=== PATIENT | female | born 1950 | race Caucasian/White ===

== ENCOUNTER 2019-11-12 11:28 | Outpatient (CLI) | payer MEDICARE, SELFPAY ==
--- NOTE | 2019-11-12 11:36 | MM_ITS ---
WS: [id number] BILATERAL SCREENING DIGITAL MAMMOGRAM WITH CAD HISTORY: SCREENING COMPARISON: 03/20/2018 and 11/29/2016 Bilateral CC and MLO views submitted. Computer aided detection analyzed. Breast composition: There are scattered areas of fibroglandular density. No suspicious masses, microc alcifications or architectural distortion. Benign lymph node upper outer quadrant of the RIGHT breast . Benign calcifications central LEFT breast near 9:00. MM/[id number] IMPRESSION: BI-RADS: 2-Benign FOLLOW UP: 1 Year Follow-up
== END 2019-11-12 11:29 | disposition home or self-care (01) ==
PROVIDERS: PCP Family Medicine; Visit Provider Family Medicine
DX: Z12.31 Encounter for screening mammogram for malignant neoplasm of breast (principal)
CPT/HCPCS: 77067

== ENCOUNTER 2020-05-17 14:37 | Outpatient (CLI) | payer MEDICARE, SELFPAY ==
--- NOTE | 2020-05-17 14:44 | XRR_ITS ---
PROCEDURE INFORMATION: Exam: XR Left Knee Exam date and time: 05/17/2020 3:26 PM Age: 69 years old Clinical indication: Pain; Knee; Left; Additional info: Routine, knee pain TECHNIQUE: Imaging protocol: XR Left knee. Views: 1 or 2 views. COMPARISON: MR knee LT wo con* [id number] 05/17/2020 2:59 PM FINDINGS: Bones/joints: Moderate degenerative narrowing of the medial joint compartment. Mild narrowing of the anterior compartment. The lateral compartment is preserved. There are small osteophytes seen medially, laterally, and anteriorly. No fracture or other acute osseous abnormality. No joint effusion demonstrated. Soft tissues: The soft tissues appear unremarkable. XR/XR knee LT 1-2V [id number] IMPRESSION: 1. Tricompartmental degenerative arthritis noted, most severe in the medial and anterior compartments. 2. No acute abnormality demonstrated.
--- NOTE | 2020-05-17 14:44 | MR_ITS ---
WS: [id number] MRI LEFT KNEE NONCONTRAST TECHNIQUE: Axial PD, coronal PD fat sat, coronal PD, sagittal PD, and sagittal PD fat-sat images obta ined. CLINICAL INFORMATION: ROUTINE, KNEE PAIN COMPARISON: None. FINDINGS: Moderate tricompartmental arthritis with narrowing of the medial joint compartment and patellofemoral articulation. Hypertrophic patella. Small suprapatellar effusion. Diffuse soft tissue edema involvi ng the periarticular soft tissues. Small lobulated popliteal cyst. Advanced chondromalacia patella. No subchondral edema. Diffuse edema involving the medial femoral con dyle and medial tibial plateau likely due to recent contusion. Small osteochondral defect measuring 3 mm. No significant edema involving the lateral femoral condyle and tibial plateau. Diffuse chronic thinning of the medial and lateral meniscus. Lateral meniscus is intact. Complex tear involving the posterior horn medial meniscus extending to the articular surface and extending to the meniscal root with joint space narrowing. Anterior and posterior cruciate ligaments are intact. Distal quadriceps and patella tendons are intac t. Medial and lateral collateral ligaments appear intact. Incidental venous varices involving the jan elizabeth soft tissues. MR/MR knee LT wo con* [id number] IMPRESSION: 1. Anterior and posterior cruciate ligaments are intact. 2. Complex tear involving the posterior horn medial meniscus extending to the articular surface and meniscal root with joint space narrowing. 3. Diffuse edema involving the medial femoral condyle and tibial plateau with small osteochondral defect described above likely due to recent contusion. 4. Small suprapatellar effusion. 5. Advanced chondromalacia patella. 6. Small lobulated popliteal cyst. 7. Medial and lateral collateral ligaments appear intact.
== END 2020-05-17 14:38 | disposition home or self-care (01) ==
PROVIDERS: PCP Family Medicine; Visit Provider Nurse Practitioner
DX: M17.12 Unilateral primary osteoarthritis, left knee (principal); M71.22 Synovial cyst of popliteal space [Baker], left knee; M22.42 Chondromalacia patellae, left knee; M25.462 Effusion, left knee; R60.0 Localized edema; S83.242A Other tear of medial meniscus, current injury, left knee, initial encounter; X58.XXXA Exposure to other specified factors, initial encounter
CPT/HCPCS: 73560; 73721

== ENCOUNTER 2020-07-13 06:00 | Outpatient (RCR) | payer MEDICARE, SELFPAY | END 2020-07-25 23:59 | disposition home or self-care (01) | LOC: SPT 06:00 | PROVIDERS: PCP Family Medicine; Referring Provider Orthopaedic Surgery; Visit Provider Orthopaedic Surgery | DX: M17.12 Unilateral primary osteoarthritis, left knee (principal) | CPT/HCPCS: 97161 ==

== ENCOUNTER 2020-07-26 06:00 | Outpatient (RCR) | payer MEDICARE, SELFPAY | END 2020-08-24 23:59 | disposition home or self-care (01) | LOC: SPT 06:00 | PROVIDERS: PCP Family Medicine; Referring Provider Orthopaedic Surgery; Visit Provider Orthopaedic Surgery | DX: M17.12 Unilateral primary osteoarthritis, left knee (principal) | CPT/HCPCS: 97110 ==

== ENCOUNTER → 2020-09-26 13:35 | Outpatient (BNVA) | payer MEDICARE, SELFPAY | PROVIDERS: PCP Family Medicine; Visit Provider Psychiatry & Neurology Psychiatry | DX: F31.9 Bipolar disorder, unspecified (principal); F41.9 Anxiety disorder, unspecified; Z79.899 Other long term (current) drug therapy; Z03.89 Encounter for observation for other suspected diseases and conditions ruled out | CPT/HCPCS: 80053; 80178; 83036; 84443; 85025 ==

== ENCOUNTER → 2020-11-07 10:18 | Outpatient (BNVA) | payer MEDICARE, SELFPAY | PROVIDERS: PCP Family Medicine; Visit Provider Psychiatry & Neurology Psychiatry | DX: Z79.899 Other long term (current) drug therapy (principal); Z03.89 Encounter for observation for other suspected diseases and conditions ruled out; F41.9 Anxiety disorder, unspecified; F31.9 Bipolar disorder, unspecified | CPT/HCPCS: 99214 ==

== ENCOUNTER → 2020-11-25 13:03 | Outpatient (BNVA) | payer MEDICARE, SELFPAY | PROVIDERS: PCP Family Medicine; Visit Provider Social Worker | DX: F41.1 Generalized anxiety disorder (principal); F31.9 Bipolar disorder, unspecified | CPT/HCPCS: 90834 ==

== ENCOUNTER → 2020-12-09 12:30 | Outpatient (BNVA) | payer MEDICARE, SELFPAY | PROVIDERS: PCP Family Medicine; Visit Provider Social Worker | DX: F41.9 Anxiety disorder, unspecified (principal); F31.9 Bipolar disorder, unspecified | CPT/HCPCS: 90834 ==

== ENCOUNTER 2020-12-15 16:07 | Outpatient (CLI) | payer MEDICARE, SELFPAY ==
--- NOTE | 2020-12-15 16:11 | XR_ITS ---
WS: [id number] Right ankle, 3 views, 12/15/2020 Clinical Data: CHRONIC PAIN IN RIGHT FOOT Comparison: None. Findings: No fractures or dislocations are seen. The ankle mortise is normal. The talus and calcaneus are unrem arkable. No soft tissue swelling over the medial or lateral malleolus is seen. There is a plantar spur and an Achilles spur. XR/XR ankle RT min 3V* [id number] Impression: Negative right ankle.
--- NOTE | 2020-12-15 16:11 | XR_ITS ---
WS: [email or web address] Right foot, 3 views, 12/15/2020 Clinical Data: CHRONIC PAIN RIGHT FOOT Comparison: None. Findings: No fractures or dislocations are seen. No bone destruction or erosion is noted. The joint spaces and soft tissues are normal. There is a plantar spur and an Achilles spur. XR/XR foot RT min 3V* [id number] Impression: Negative right foot.
== END 2020-12-15 16:08 | disposition home or self-care (01) ==
LOC: RAD 16:10
PROVIDERS: PCP Family Medicine; Visit Provider Nurse Practitioner
DX: M79.671 Pain in right foot (principal)
CPT/HCPCS: 73610; 73630

== ENCOUNTER → 2021-01-03 15:06 | Outpatient (BNVA) | payer MEDICARE, SELFPAY | PROVIDERS: PCP Family Medicine; Visit Provider Psychiatry & Neurology Psychiatry | DX: F31.9 Bipolar disorder, unspecified (principal); F41.9 Anxiety disorder, unspecified; Z79.899 Other long term (current) drug therapy; Z03.89 Encounter for observation for other suspected diseases and conditions ruled out | CPT/HCPCS: 99214 ==

== ENCOUNTER 2021-03-01 13:14 | Outpatient (CLI) | payer MEDICARE, SELFPAY ==
--- NOTE | 2021-03-01 13:20 | MM_ITS ---
WS: [id number] BILATERAL SCREENING DIGITAL MAMMOGRAM WITH CAD HISTORY: SCREENING COMPARISON: 11/12/2019, 03/20/2018 Bilateral CC and MLO views submitted. Computer aided detection analyzed. Breast composition: There are scattered areas of fibroglandular density. No suspicious masses, microc alcifications or architectural distortion. 6 mm nodule in the lateral RIGHT breast is stable from mul tiple years. This is probably a lymph node. Benign coarse calcification in the LEFT breast. MM/[id number] IMPRESSION: BI-RADS: 2-Benign FOLLOW UP: 1 Year Follow-up
== END 2021-03-01 13:15 | disposition home or self-care (01) ==
LOC: RADSHAW 13:19
PROVIDERS: PCP Family Medicine; Visit Provider Family Medicine
DX: Z12.31 Encounter for screening mammogram for malignant neoplasm of breast (principal)
CPT/HCPCS: 77067

== ENCOUNTER → 2021-06-14 14:37 | Outpatient (BNVA) | payer MEDICARE, SELFPAY | PROVIDERS: PCP Family Medicine; Visit Provider Podiatrist Foot & Ankle Surgery | DX: M72.2 Plantar fascial fibromatosis (principal); M21.621 Bunionette of right foot; M76.821 Posterior tibial tendinitis, right leg; M20.41 Other hammer toe(s) (acquired), right foot; M20.42 Other hammer toe(s) (acquired), left foot; M21.622 Bunionette of left foot | CPT/HCPCS: 99213 ==

== ENCOUNTER → 2021-08-09 14:50 | Outpatient (BNVA) | payer MEDICARE, SELFPAY | PROVIDERS: PCP Family Medicine; Visit Provider Podiatrist Foot & Ankle Surgery | DX: M72.2 Plantar fascial fibromatosis (principal); M79.671 Pain in right foot; M21.621 Bunionette of right foot; M21.622 Bunionette of left foot; M76.821 Posterior tibial tendinitis, right leg; M20.41 Other hammer toe(s) (acquired), right foot; M20.42 Other hammer toe(s) (acquired), left foot | CPT/HCPCS: 99213 ==

== ENCOUNTER 2021-08-16 15:57 | Outpatient (CLI) | payer MEDICARE, SELFPAY | END 2021-08-16 15:58 | disposition home or self-care (01) | LOC: SPT 15:57 | PROVIDERS: PCP Family Medicine; Visit Provider Podiatrist Foot & Ankle Surgery | DX: Z46.89 Encounter for fitting and adjustment of other specified devices (principal); M72.2 Plantar fascial fibromatosis; M79.673 Pain in unspecified foot | CPT/HCPCS: 97760; L3030 ==

== ENCOUNTER 2022-01-30 08:04 | Outpatient (CLI) | payer MEDICARE, SELFPAY ==
--- NOTE | 2022-01-30 08:09 | FL_ITS ---
WS: [id number] Upper GI series with air contrast, 01/30/2022 Clinical Data: ABDOMINAL PAIN/GASTRO-ESOPHAGEAL REFLUX DZ W/O ESOPHAGITIS Comparison: None. Fluoroscopy time: 1min [id number] # of spot films: 43 Findings: The preliminary film shows clips in the right upper quadrant from a cholecystectomy and clips overlyi ng the right sacrum from gastric surgery. There is a large amount of fecal material throughout the co len. The patient swallowed the barium and it flowed through the hypopharynx and upper esophagus witho ut hesitation or obstruction. There were tertiary contractions. The patient had a large hiatal hernia . There is modest gastroesophageal reflux. No erosion, polyp, obstruction, ulcer or mass could be see n. The stomach has been removed. There is an anastomosis between the esophageal hiatal hernia and the jejunum. The jejunum filled normally without obstruction, polyp, mass or extrinsic deformity. The il eum filled normally. FL/FL upper GI series [id number] Impression: 1. Large hiatal hernia with mild gastroesophageal reflux. 2. Resection of the stomach with anastomosis between the distal portion of the hiatal hernia and the jejunum.
== END 2022-01-30 08:05 | disposition home or self-care (01) ==
LOC: RAD 08:05
PROVIDERS: PCP Family Medicine; Visit Provider Family Medicine
DX: R10.9 Unspecified abdominal pain (principal); K21.9 Gastro-esophageal reflux disease without esophagitis; K44.9 Diaphragmatic hernia without obstruction or gangrene
CPT/HCPCS: 74240

== ENCOUNTER 2022-02-13 07:02 | Outpatient (CLI) | payer MEDICARE, SELFPAY ==
--- NOTE | 2022-02-13 07:17 | USCV_ITS ---
Nathen, Lilla Age: 71 Gender: F : 1950 Exam Date: 02/13/2022 07:25 Ordering Phys: Ana Hayes MD Technologist: MICHELLE [place] [facility] [place]: Flo[place] Risk Factors: Previous Vascular Surgery: Right Brachial BP: / Left Brachial BP: / Right Left Velocity (cm/s) Spectral Plaque Velocity (cm/s) Spectral Plaque Syst/Diast Broadening Syst/Diast Broadening 74.60/ 21.00 Prox CCA 61.70 / 14.30 72.20/ 21.80 Mid CCA 40.80 / 13.20 69.90/ 22.50 Distal CCA 59.50 / 19.80 41.10/ 12.70 Prox ICA 48.10 / 17.10 42.90/ 14.50 Mid ICA 54.50 / 17.10 55.90/ 21.80 Distal ICA 40.10 / 17.10 85.40 ECA 65.10 0.75 ICA/CCA 0.88 Vertebral 51.30/ 16.30 cm/s 36.30/ 8.00 cm/s Subclavian 83.80 124.9 0 FINDINGS Comparison: none available. No significant elevation of systolic or diastolic velocities. Waveforms are normal. Mild scattered calcified plaque and intimal thickening throughout the common carotid arteries and extending through the bifurcation. Antegrade vertebral arteries. CONCLUSIONS Bilateral ICA stenosis less than 50%. Mild carotid atherosclerosis. Dr. Kayla Soriano DO (Electronically Signed) Final Date: 13 February 2022 10:23 S
== END 2022-02-13 07:03 | disposition home or self-care (01) ==
LOC: RAD 07:02
PROVIDERS: PCP Family Medicine; Visit Provider Family Medicine
DX: R42 Dizziness and giddiness (principal); I65.23 Occlusion and stenosis of bilateral carotid arteries
CPT/HCPCS: 93880

== ENCOUNTER 2022-06-06 14:34 | Outpatient (CLI) | payer MEDICARE, SELFPAY ==
--- NOTE | 2022-06-06 14:45 | MM_ITS ---
WS: [id number] BILATERAL 3D TOMOSYNTHESIS DIGITAL SCREENING MAMMOGRAPHY WITH CAD CLINICAL INFORMATION: SCREENING HISTORY: Screening mammogram. No current complaints. COMPARISON: March 01, 2031 TECHNIQUE: Bilateral CC and MLO views. FINDINGS: Scattered fibroglandular densities bilaterally. No suspicious focal mass, asymmetry, calcifications, or architectural distortion. No evidence of malignancy. Vascular calcifications. Punctate and lucent calcifications. Dystrophic calcification LEFT breast. MM/[place] [id number] IMPRESSION: BI-RADS: 2-Benign FOLLOW UP: 1 Year Follow-up Recommend return to annual screening mammography.
== END 2022-06-06 14:35 | disposition home or self-care (01) ==
PROVIDERS: PCP Family Medicine; Visit Provider Family Medicine
DX: Z12.31 Encounter for screening mammogram for malignant neoplasm of breast (principal)
CPT/HCPCS: 77063; 77067

== ENCOUNTER → 2022-07-27 10:57 | Outpatient (BNVA) | payer MEDICARE, SELFPAY | PROVIDERS: PCP Family Medicine; Visit Provider Nurse Practitioner Family | DX: L81.4 Other melanin hyperpigmentation (principal); L57.0 Actinic keratosis; L82.1 Other seborrheic keratosis; L57.8 Other skin changes due to chronic exposure to nonionizing radiation; Z12.83 Encounter for screening for malignant neoplasm of skin | CPT/HCPCS: 17000; 17003; 99213 ==

== ENCOUNTER → 2022-10-19 10:47 | Outpatient (BNVA) | payer MEDICARE, SELFPAY | PROVIDERS: PCP Family Medicine; Visit Provider Otolaryngology | DX: Z71.1 Person with feared health complaint in whom no diagnosis is made (principal); K13.0 Diseases of lips | CPT/HCPCS: 99212; 99213 ==

== ENCOUNTER 2023-06-12 12:57 | Outpatient (CLI) | payer MEDICARE, SELFPAY ==
--- NOTE | 2023-06-12 13:11 | MM_ITS ---
WS: [id number] BILATERAL 3D TOMOSYNTHESIS DIGITAL SCREENING MAMMOGRAPHY WITH CAD CLINICAL INFORMATION: SCREENING HISTORY: Screening mammogram. No current complaints. COMPARISON: 06/06/2022 TECHNIQUE: Bilateral CC and MLO views. FINDINGS: Scattered fibroglandular densities bilaterally. No suspicious focal mass, asymmetry, calcifications, or architectural distortion. No evidence of malignancy. Incidental punctate and lucent centered calci fications. Dystrophic calcification LEFT breast. IMPRESSION: MM/[place] [id number] BI-RADS: 2-Benign FOLLOW UP: 1 Year Follow-up Recommend return to annual screening mammography.
== END 2023-06-12 12:58 | disposition home or self-care (01) ==
LOC: RAD 12:59
PROVIDERS: PCP Family Medicine; Visit Provider Family Medicine
DX: Z12.31 Encounter for screening mammogram for malignant neoplasm of breast (principal)
CPT/HCPCS: 77063; 77067

== ENCOUNTER → 2023-07-16 15:20 | Outpatient (BNVA) | payer MEDICARE, SELFPAY | PROVIDERS: PCP Family Medicine; Visit Provider Nurse Practitioner Family | DX: L81.4 Other melanin hyperpigmentation (principal); L57.0 Actinic keratosis; L82.1 Other seborrheic keratosis; L57.8 Other skin changes due to chronic exposure to nonionizing radiation; L82.0 Inflamed seborrheic keratosis; L72.0 Epidermal cyst; D22.62 Melanocytic nevi of left upper limb, including shoulder | CPT/HCPCS: 17000; 17110; 99213 ==

== ENCOUNTER → 2023-10-21 13:35 | Outpatient (BNVA) | payer MEDICARE, SELFPAY | PROVIDERS: PCP Family Medicine; Visit Provider Nurse Practitioner | DX: M65.331 Trigger finger, right middle finger; M79.641 Pain in right hand | CPT/HCPCS: 73130; 99204 ==

== ENCOUNTER → 2024-07-15 09:31 | Outpatient (BNVA) | payer MEDICARE, SELFPAY | PROVIDERS: PCP Family Medicine; Visit Provider Nurse Practitioner Family | DX: L82.1 Other seborrheic keratosis (principal); L81.4 Other melanin hyperpigmentation; L57.8 Other skin changes due to chronic exposure to nonionizing radiation; X32.XXXA Exposure to sunlight, initial encounter; L57.0 Actinic keratosis; D22.5 Melanocytic nevi of trunk | CPT/HCPCS: 17000; 99213 ==